=== PATIENT | female | born 2000 | race Caucasian/White ===

== ENCOUNTER → 2023-11-20 | Outpatient (CLI) | payer SELFPAY, OTHER ==
--- NOTE | 2023-11-20 14:01 | ECHOD_ITS ---
Reason For Study: Dilated Cardiomyopathy Procedure This was a 2D Doppler, Color Flow transthoracic echocardiogram. Exam performed in department. Left Ventricle Normal LV size. Left ventricular systolic function is normal. The estimated ejection fraction is 55 %. Normal diastology for age. No regional wall motion abnormalities noted. Right Ventricle Normal RV size. Normal systolic function. Atria Normal left atrium. Normal right atrium. Mitral Valve Normal mitral valve. Tricuspid Valve Normal tricuspid valve. Aortic Valve Normal aortic valve. Trisinus/trileaflet aortic valve. Pulmonic Valve Normal pulmonic valve. Great Vessels Normal aortic root. The pulmonary artery is normal size. Normal inferior vena cava. Inferior vena cava collapse with respiration. Pericardium/Pleural No pericardial effusion. MMode/2D Measurements & Calculations LVIDd: 4.3 cm IVSd: 0.79 cm Ao root diam: 3.1 cm LVIDs: 2.9 cm LVPWd: 0.90 cm LA dimension: 3.4 cm FS: 31.8 % LAV(MOD-bp): 40.5 ml LVAd ap4: 25.4 cm2 SV(MOD-sp4): 39.7 ml LAV(MOD-bp) Indexed: 20.4 ml/m2 LVLd ap4: 7.2 cm LAV(MOD-sp2): 42.7 ml EDV(MOD-sp4): 73.0 ml LAV(MOD-sp4): 35.4 ml EDV(sp4-el): 76.2 ml LVAs ap4: 16.2 cm2 LVLs ap4: 6.4 cm ESV(MOD-sp4): 33.4 ml ESV(sp4-el): 34.6 ml EF(MOD-sp4): 54.3 % EF(sp4-el): 54.6 % SV(sp4-el): 41.7 ml LA A4 area: 15.1 cm2 RA A4 area: 14.6 cm2 TAPSE: 2.4 cm Time Measurements MV dec time: 0.16 sec Doppler Measurements & Calculations MV E max nilesh: 98.9 cm/sec Lat Peak E' Nilesh: 20.1 cm/sec Med Peak E' Nilesh: 14.9 cm/sec MV A max nilesh: 54.2 cm/sec E/E' lat: 4.9 E/E' med: 6.6 MV E/A: 1.8 MV V2 max: 113.2 cm/sec MV P1/2t max nilesh: 113.8 cm/sec Ao V2 max: 129.0 cm/sec MV max P.1 mmHg MV P1/2t: 52.4 msec Ao max P.7 mmHg MV V2 mean: 45.5 cm/sec MV dec slope: 636.5 cm/sec2 Ao V2 mean: 93.2 cm/sec MV mean P.2 mmHg Ao mean P.9 mmHg MV V2 VTI: 26.4 cm MVA(P1/2t): 4.2 cm2 Ao V2 VTI: 27.0 cm AV (velocity ratio): 0.85 LV V1 max: 105.5 cm/sec PA V2 max: 109.7 cm/sec LV V1 max P.5 mmHg PA V2 mean: 79.3 cm/sec LV V1 mean P.8 mmHg LV V1 mean: 77.8 cm/sec LV V1 VTI: 23.0 cm ECHO/Echo Complete Interpretation Summary Normal LV size. Left ventricular systolic function is normal. The estimated ejection fraction is 55 %. Structurally normal valves. Ordering Physician: Anthony Mendez Referring Physician: Anthony Mendez Performed By: Brenden Henriquez RCS
== END | disposition home or self-care (01) ==
LOC: CVS 13:59
PROVIDERS: PCP Nurse Practitioner Family; Referring Provider Internal Medicine Cardiovascular Disease; Visit Provider Internal Medicine Cardiovascular Disease
DX: I42.0 Dilated cardiomyopathy (principal)
CPT/HCPCS: 93306

== ENCOUNTER 2024-08-16 12:09 | Day surgery (SDC) | payer SELFPAY, OTHER ==
[2024-08-16] VITALS (9 sets, daily range): BP systolic 101–138; BP diastolic 60–87; PULSE 75–95; RESP 16–18; TEMP 36.4–36.7; O2SAT 94–99; BMI 38.7
--- NOTE | 2024-08-16 | MISC_PTH ---
PATHOLOGY RESULTS PATIENT: DIMITRY VALENCIA LOC: [facility] – [place] U#:[id number] AGE/SX: 24/F ROOM: RE08/16/[address]: Dr. Kareem Cherry DPM : 2000 BED: DIS: 08/16/2024 SPEC #: [id number] RECD: 08/16/24 17:40 STATUS: DEBBIE REQ #: [id number] VERONICA: 08/16/24 00:[address]: Kareem Cehrry DEPT: SURGICAL PATHOLOGY RECD BY: Walter Ha ENTERED: 08/19/24 08:18 SP TYPE: [facility] [place] [address] DR: Brissa Medina, MEDICAL MANAGEMENT SPECIALIST-C Tissues: Fibrous tissue Procedures: Surgery Specimen Level III HEADER OPERATION: Excision of left foot plantar fibroma with tissue rearrangement PRE-OP DIAGNOSIS: Left plantar fibroma TISSUE SUBMITTED: Plantar fibroma, left foot MICROSCOPIC DIAGNOSIS Soft tissue of left foot, plantar region, excision: Consistent with fibromatosis. AM.mr 08/20/2024 MICROSCOPIC DESCRIPTION Slides are reviewed. GROSS DESCRIPTION Received in fixative is one container labeled with the patient's name and designated Plantar fibroma, left foot. The specimen consists of a piece of reyna-indurated tissue measuring 3.0 x 1.5 x 0.9cm. Also present in the container are two detached pieces of reyna indurated tissue measuring in aggregate 1.5 x 0.5 x 0.5cm. The larger piece is serially sectioned and reveal indurated reyna solid cut surfaces. The entire specimen is submitted in three cassettes. 08/19/2024 TC:5 CPT:21311
--- NOTE | 2024-08-16 12:28 | DCINST_ITS ---
Discharge Instructions Diet Discharge Diet: No restrictions Activity Discharge Activity: May Drive and May Shower (Please utilize cast bag covering when showering to keep the left foot clean and dry) Weight Bearing Status: Weight bearing as tolerated (May remain weightbearing as tolerated to the left foot in a short CAM boot. May also use knee scooter until tolerance improves.) Keep extremity elevated above heart level: Left Leg (Please elevate left lower extremity at all times of rest for postoperative edema control) Dressing / Incision Call your doctor if you observe: Fever of 101 or Higher, Shortness of breath, Chest pain and Calf discomfort Change Dressing in: do not change dressing Remove Dressing in: leave in place till F/U (Do not change dressing. Physician will change dressing at first postoperative appointment.) Cleanse incision/area with: Do not get Incision Wet and Keep Dressing Clean & Dry (Do not get dressings wet. Utilize cast bag when showering to keep the dressings clean, dry, and intact to the left foot) Follow Up Care Please Follow Up With: Kareem Cherry DPM When: Patient has first postoperative appointment scheduled with me in office early next week. Test Results: Test results from this visit will be discussed in further detail at your follow- up appointment, if applicable. Discharge Plan Admission Attending Provider: Kareem Cherry Primary Care Provider: Brissa Medina Instructions Print Language: [place] Discharge Orders/Prescriptions Prescriptions: New doxycycline hyclate 100 mg capsule 100 mg PO DAILY Qty: 10 0RF aspirin 325 mg tablet 325 mg PO DAILY Qty: 20 0RF hydrocodone-acetaminophen 5-325 mg tablet 1 tab PO Q8H PRN (Reason: pain (scale score 6-10)) 7 Days Qty: 28 0RF No Action fluoxetine 20 mg capsule 40 mg PO DAILY Referrals / Follow Up: Brissa Medina, PLANIMETER OPERATOR-C [Primary Care Provider] - Disposition Disposition (needs filled in before D/C Order can be placed): Home, Self Care
[2024-08-16] MEDS: Lactated Ringers 1,000 ML 15 ML IV (12:44)
[2024-08-16 13:07] LABS: Internal QC Validated? YES +Cl - CLEAR BKGD; Pregnancy, Serum, hCG Quali. NEGATIVE Negative
--- NOTE | 2024-08-16 13:20 | PRE.ANES_ITS ---
ASA Classification* ASA Classification ASA Classification: 2 Assessment & Plan Anesthesia* Anesthesia Assessment Anesthesia Assessment: Discussed sedation and/or anesthesia options, risks, benefits, and alternatives with patient/parents/legal guardian/POA. Questions invited. The patient/parents/legal guardian/POA seems to understand and agrees to proceed with anesthesia plan. Reviewed the physical assessment, medical history, allergy history and patient home medications list prior to surgery/procedure/anesthetic and documented any changes. Performed airway and anesthesia risk assessments. Anesthesia Type Anesthesia Type: General History Source History Obtained from:: Patient and Chart Anesthesia Focused Assessment* Temperature: 98.1 F Pulse Rate: 75 Blood Pressure: 102/86 Respiratory Rate: 18 Pulse Ox: 98 Oxygen Delivery Method: Room Air Airway Assessment Mouth opens: 2 cm Mallampati Score: IV Teeth Condition: Intact Neck Range of motion (ROM): Limited ROM (Slight decrease in extension) Focused Labs Anesthesia Preop lab: CBC CHEMISTRY COAG Pre-Assessment Diagnosis/Proposed Procedure Planned Operative Procedure(s): EXCISION OF LEFT FOOT PLANTAR FIBROMA WITH TISSUE REARRANGEMENT/ADVANCEMENT FLAP Anesthesia History Anesthesia History - manager engagement: Anesthesia History - manager engagement Hx Hospitalization No 07/31/24 09:23 Any Problems With Anesthesia No 07/31/24 09:23 Cholinesterase deficiency No 07/31/24 09:23 You/Your Family Experience No 07/31/24 09:23 fever (hyperthermia) with Relationship Recent Exposure to Contagious No 08/16/24 12:46 Disease Does patient have nerve No 07/31/24 09:23 stimulator Patient instructed to have device shut off --Does patient have Pacemaker No 08/16/24 12:46 or ICD? When Was Last Pacemaker Check QUESTION #4 FULL TEXT: You/Your Family Experience fever (hyperthermia) with Anesthesia Last Oral Intake Last Oral intake: Last Oral Intake NPO since 00:00 08/16/24 12:46 Meds taken in AM with sips of Yes 08/16/24 12:46 water? Meds patient instructed to take am of surgery PONV PONV - manager engagement: PONV - manager engagement Female Yes 07/31/24 09:23 HX of Motion Sickness No 07/31/24 09:23 HX of N/V After Surgery No 07/31/24 09:23 Non-Smoker Yes 07/31/24 09:23 Duration of Surgery greater Yes 07/31/24 09:23 than 60 minutes Number of Risk Factors 3 07/31/24 09:23 PONV Score Moderate Risk 07/31/24 09:23 Height & Weight Height & Weight: Anesthesia: Height & Weight Height 5 ft 3 in 08/16/24 12:46 Weight: 99.337 kg 08/16/24 12:46 Body Mass Index (BMI) 38.7 08/16/24 12:46 Respiratory Assessment Respiratory Assessment - manager engagement: Respiratory Tract Infection Hx - manager engagement Hx Respiratory Tract Infection No 07/31/24 09:23 STOP Sleep Apnea STOP Sleep Apnea - manager engagement: STOP Sleep Apnea - manager engagement Hx Hypertension No 07/31/24 09:23 Hx Sleep Apnea No 07/31/24 09:23 CPAP BIPAP Do you snore loudly (louder No 07/31/24 09:23 than talking or can be heard Do you often feel tired/ No 07/31/24 09:23 fatigued/ sleepy during daytime? Has anyone observed you stop No 07/31/24 09:23 breathing during sleep? STOP Results Negative 07/31/24 09:23 QUESTION #5 FULL TEXT : Do you snore loudly (louder than talking or can be heard through closed doors)? Tobacco Use History Tobacco Use History - manager engagement: Tobacco Use History - manager engagement Tobacco Use Smoking Status Never smoker 07/31/24 09:23 Hx Tobacco Use No 07/31/24 09:23 Years Smoking Packs Smoked per Day Smoking Cessation Date was within the last 15 years Hx Smoking Cessation Date Hx Smoking Cessation Counseling Hematologic Medial History Hematologic Hx - manager engagement: Hematologic Medical Hx - clinical microbiologist Hx of Blood Transfusion No 07/31/24 09:23 Hx of Transfusion in last 3 No 07/31/24 09:23 Months Date of Last Transfusion (if within last 3 months) Ever experience any problems No 07/31/24 09:23 with transfusion(s)? Specify any problems Hx of Preganancy in last 3 No 07/31/24 09:23 Months Nurse Filling Out Transfusion DSCHRIBER 07/31/24 09:23 & Questions: Date: 07/31/24 07/31/24 09:23 Time: 07/31/24 09:23 Patient unable to answer at this time (ie. confused, unrespo /Reproduction History /Reproductive History - manager engagement: /Reproductive Hx- manager engagement Hx Now No 07/31/24 09:23 Gestational Age (in weeks): EDC: Hx Hx Para Hx Section SAB No 07/31/24 09:23 Active Medications Active Medications: Current Medications Generic Name Dose Route Start Last Admin Trade Name Freq PRN Reason Stop Dose Admin Cefazolin Sodium 2 gm/ N/A 20 mls @ 400 mls/hr 08/16/24 13:30 IV 08/16/24 13:32 PREOP ONE Lactated Ringer's 1,000 mls @ 15 mls/hr 08/16/24 12:15 08/16/24 12:44 IV 08/22/24 01:34 15 mls/hr .Q48H EMIL Administration Protocol [facility] Medical History (Updated 08/16/24 @ 12:[address] Kareem Cherry, DPSalvador) Depression Redness of skin Low iron Back pain Syncope Non-smoker History of pain when walking History of edema Cardiology follow-up encounter History of echocardiogram Hypertrophic obstructive cardiomyopathy (HOCM) MYBPC3-related dilated cardiomyopathy-1MM Home Medications ?Medication ?Instructions ?Recorded ?Last Taken ?Type fluoxetine 20 mg capsule 40 mg PO DAILY 10/04/23 08/16/24 History aspirin 325 mg tablet 325 mg PO DAILY #20 tabs 08/16/24 Unknown Rx doxycycline hyclate 100 mg capsule 100 mg PO DAILY #10 caps 08/16/24 Unknown Rx hydrocodone-acetaminophen 5-325mg 1 tab PO Q8H PRN pain (scale score 08/16/24 Unknown Rx 5mg-325mg 6-10) 7 days #28 tabs Allergy/AdvReac Type Severity Reaction Status Date / Time procaine (From Novocain) AdvReac Intermediate Nausea/Vom Verified 08/16/24 12:43 Family History Uncle No problems noted. Surgical History (Updated 07/31/24 @ 09:32 by Maddy Higuera) No history of previous surgery Social History Smoking Status: Never smoker Review of Systems (Anesthesia) ROS Narrative System reviewed and no additional complaints, except as documented.
[2024-08-16] MEDS: Cefazolin 2 GM in Syringe IV (14:11)
[2024-08-16] MEDS: Bupivacaine Mpf 0.5% 30 ML VIAL (14:31)
--- NOTE | 2024-08-16 15:18 | PCM.POST.ANE ---
Anesthesia: Postop Eval I Current Vital Signs Temperature: 98 F Pulse Rate: 84 Blood Pressure: 125/64 Respiratory Rate: 17 Pulse Ox: 96 Oxygen Delivery Method: Room Air Assessment Airway patent: Yes Spontaneous unlabored respirations: Yes Mental status: Awake and Calm nausea: No Vomiting: No Anesthesia Complication: No Fluid Hydration Crystalloid volume administer (ml): 1,000 Total IV fluid infused: 1,000 Progress Note Anesthesia document: Postop Eval 1 completed: Yes
--- NOTE | 2024-08-16 16:10 | POSTOPAN2_ITS ---
Anesthesia Postop Eval I Sum Postop Eval Completion status Anesthesia document: Postop Eval 1 completed: Yes Anesthesia Postop Eval I Summary Anesthesia Postop Eval I Summary: Anesthesia Postop Eval I: Assessment Summary Airway patent Yes 08/16/24 15:18 [email or web address] Spontaneous unlabored Yes 08/16/24 15:18 [email or web address] [email or web address] respirations Mental status Awake,Calm 08/16/24 15:18 [email or web address] [email or web address] nausea No 08/16/24 15:18 [email or web address] Vomiting No 08/16/24 15:18 [email or web address] Anesthesia Postop Eval I: Fluid Summary Crystalloid volume administer 1,000 08/16/24 15:18 [email or web address] (ml) Colloids volume administered ( ml) Blood Product volume administered (ml) Total IV fluid infused 1,000 08/16/24 15:18 [email or web address] Anesthesia Postop Eval I: Summary Notes Anesthesia Complication No 08/16/24 15:18 [email or web address] Anesthesia Complication Comment: Post-operative progress note Anesthesia: Postop Eval II Evaluation Mental status: Awake and Calm Pain Level: 1 nausea: No Vomiting: No Complications Anesthesia Complication: No
--- NOTE | 2024-08-16 16:10 | PCM.POSTANE2 ---
Anesthesia Postop Eval I Sum Postop Eval Completion status Anesthesia document: Postop Eval 1 completed: Yes Anesthesia Postop Eval I Summary Anesthesia Postop Eval I Summary: Anesthesia Postop Eval I: Assessment Summary Airway patent Yes 08/16/24 15:18 [email or web address] Spontaneous unlabored Yes 08/16/24 15:18 [email or web address] respirations Mental status Awake,Calm 08/16/24 15:18 [email or web address] nausea No 08/16/24 15:18 [email or web address] Vomiting No 08/16/24 15:18 [email or web address] Anesthesia Postop Eval I: Fluid Summary Crystalloid volume administer 1,000 08/16/24 15:18 [email or web address] (ml) Colloids volume administered ( ml) Blood Product volume administered (ml) Total IV fluid infused 1,000 08/16/24 15:18 [email or web address] Anesthesia Postop Eval I: Summary Notes Anesthesia Complication No 08/16/24 15:18 [email or web address] Anesthesia Complication Comment: Post-operative progress note Anesthesia: Postop Eval II Evaluation Mental status: Awake and Calm Pain Level: 1 nausea: No Vomiting: No Complications Anesthesia Complication: No
--- NOTE | 2024-08-16 18:09 | OP.PCM_ITS ---
Problems Associated Problem List Diagnoses (1) Plantar fascial fibromatosis of left foot: (2) Pain in left foot: Report of Operation Date of Procedure: 08/16/24 Pre-Operative Diagnosis: 1. Painful plantar fibroma left foot Post-Operative Diagnosis: 1. Painful plantar fibroma left foot Surgery/Procedure Performed:: 1. Excision of plantar fibroma left foot 2. Tissue rearrangement/advancement flap left foot Description of Surgical Findings:: See operative note for finding Surgeon: Kareem Cherry crimp setter: Nato Tabares DPM PGY-2 Type of Anesthesia: General and Local (17 cc 0.5% Marcaine plain) Anesthesiologist: Magno Harden Specimen's removed: Plantar fibroma left foot Drains: None Estimated Blood Loss (mL): <1 mL Description of Procedure: HPI/indication: Patient is a 24-year-old [facility] female who presented to office on 12/06/2023 with complaint of painful plantar fibroma of the left foot. At that time she was seeking a second opinion about surgical intervention as she had seen another commercial accountant earlier in October. At that time a corticosteroid injection was performed by that provider to aid in improvement of the pain/discomfort and an attempt to shrink down the soft tissue mass according to the patient. Patient states that this was not helpful as she still had pain and discomfort secondary to the size of the fibroma located within the arch of the foot along the medial plantar fascia band. Radiographs were obtained in office to 12/06/2023 and negative for acute osseous pathology. Patient states that prior to her presentation with the other provider the plantar fibroma had been present for roughly 2 years. At that time we discussed surgical intervention for excision of the plantar fibroma however patient wanted to discuss with the pr evious provider. About performing surgical intervention in the office under local anesthesia. I discussed with the patient at that time surgical intervention would be best performed in hospital setting versus surgical center. Patient did return to the other provider and did undergo physical therapy however therapy was unsuccessful. She did return in office with me May 18, 2024 for second discussion for plan to remove the painful plantar fibroma later in the fall. At that time surgical intervention was discussed and patient was in agreement with proceeding forward. She did return at the end of June 2024 for surgical discussion. Discussed with the patient the procedure at that time and typical postoperative course. Discussed benefits of the procedure versus risks and complications of the procedure. Discussed that the risks include but are not limited to the following:, Pain, continued pain, complex regional pain syndrome, edema, neuritis/numbness, dehiscence, delayed heali ng/nonhealing, recurrence of the plantar fibroma at other regions along the plantar fascia, need for further surgical intervention, infection, bleeding, calcaneocuboid joint pain, loss of medial arch height, difficulty wearing shoe gear, inability to wear shoe gear, stroke, heart attack, loss of function, loss of limb, loss of life. Patient was understanding of these and was able to repeat these back. Surgical consent was signed for excision of the plantar fibroma and tissue rearrangement/advancement flap of the left foot. No promises were made. No guarantees were given. All diagnostic data was reviewed prior to entering the OR. Operative limb was signed prior to entering the OR. She surgical excision of the plantar fibroma and tissue rearrangement/advancement flap of the left foot at [facility] on 08/16/2024. Procedure: Under mild sedation patient brought in the operating room placed on the table in supine position. Patient was secured to table with safety belt. [place] bump was utilized to bump the left leg. Following induction of IV anesthesia a pneumatic ankle tourniquet was placed about the patient's left ankle. A local anesthetic block was then performed proximal to the plantar fibroma and immediately along the posterior tibial nerve consisting of 7 cc 0.5% Marcaine plain. The left foot was then scrubbed, prepped, and draped in usual aseptic manner. Esmarch bandage was utilized to exsanguinate the left foot and the foot was elevated and the pneumatic ankle tourniquet was inflated to 250 mmHg. At this time attention was directed to the plantar aspect of the left foot where there was a plantar fibroma/soft tissue mass within the medial longitudinal arch of the medial plantar fascial band of the left foot. Soft tissue mass borders were clearly visible through the skin and hard to palpation. Corresponding with dorsiflexion of the hallux and activation of the windlass mechanism. A lazy S incision was made overlying the plantar fibroma utilizing a #15 blade. Incision was deepened through sharp and blunt dissection. Next, the plantar fibroma mass was clearly visible within the medial longitudinal band of the plantar fascia. Borders were marked utilizing a marking pen and the fibroma was excised utilizing a #15 blade will be on the borders of the soft tissue mass removing a healthy portion of the fascia along with the soft tissue mass. The soft tissue mass was then passed from the operative field to the table in toto. Plantar fibroma/soft tissue mass was sent to pathology for analysis. Following excision of the plantar fibroma/soft tissue mass the underlying muscle belly was visible and no palpable mass was felt in the remaining portions along the plantar fascia. Hallux was dorsiflexed and there was noted to be loss of the windlass mechanism secondary to excision of the plantar fibroma at the medial longitudinal band. Site was then irrigated with copious amounts of normal sterile saline. Next, secondary to size of the soft tissue mass soft tissue rearrangement was performed and an advancement flap was created to aid in closure of the surgical site. Deep tissue was then closed utilizing 4-0 Vicryl. Subcutaneous tissues was then closed utilizing 4-0 Monocryl. The skin was then reapproximated utilizing 2-0 Prolene in a horizontal mattress fashion. At this time the pneumatic ankle tourniquet was deflated and a prompt hyperemic response was noted to the digits of the left foot. A postoperative block for pain control was then performed about the posterior tibial nerve and about the surgical site consisting of 10 cc 0.5% Marcaine plain. Incision site was dressed with Betadine soaked Adaptic, 4 x 4 gauze, ABD, Kerlix x 2, and a 4 inch Dc wrap rolled onto the left foot. Patient tolerated the procedure and anesthesia well was transported to the PACU vital signs stable vascular status intact to the left foot. Patient was given discharge instructions outlining her postoperative care. This discharge care was also discussed with the patient's family. She was instructed to be weightbearing as tolerated to the left foot utilizing a CAM boot. She is to elevate the left lower extremity at all times of rest for postoperative edema control. She is to keep dressings clean, dry, and intact to the left foot and utilize cast bag to cover when showering to aid in keeping the site dry. She may remove boot for sleeping purposes. Patient has first postoperative visit with me in office early next week. Grafts/Implants Used: None Complications None Admit VTE Documentation VTE Present on Admission: No VTE Mechan Device Prophylaxis: SCD's VTE Pharm Prophylaxis ordered?: Yes
== END 2024-08-16 16:53 | disposition home or self-care (01) ==
LOC: SDC 12:14 → AC 12:14
PROVIDERS: Anesthesiology; PCP Nurse Practitioner Family; Referring Provider Student in an Organized Health Care Education/Training Program; Visit Provider Student in an Organized Health Care Education/Training Program
PROC: (CPT 28008; principal; 2024-08-16 13:15)
DX: M72.2 Plantar fascial fibromatosis (principal); M79.672 Pain in left foot; D21.22 Benign neoplasm of connective and other soft tissue of left lower limb, including hip; F32.A Depression, unspecified; Z79.899 Other long term (current) drug therapy
CPT/HCPCS: 28039; 14040; 00400; 84703; 88304; J7120; J2405